=== PATIENT | female | born 1960 | race Caucasian/White ===

== ENCOUNTER 2021-04-20 17:24 | Emergency (ER) | payer BC ==
[2021-04-20 17:34] VITALS: RESP 18; TEMP 97.7
[2021-04-20] MEDS ORDERED: SODIUM CHLORIDE 0.9% 1,000 ML IV STA (17:37)
[2021-04-20] MEDS ORDERED: LORazepam 1 MG TAB PO STA (17:38)
[2021-04-20] MEDS ORDERED: LORazepam 2 MG/ML INJ IV STA (17:40)
[2021-04-20 17:49] LABS: Basophils # (A) 0.1 k/uL (0-0.2); Basophils % (A) 1 %; Eosinophils % (A) 1 %; HCT 41.1 % (34.0-46.0); HGB 13.8 gm/dL (11.4-16.0); Lymphocytes # (A) 1.4 k/uL (1.0-4.8); Lymphocytes % (A) 39 %; MCH 34.4 pg (25.0-35.0); MCHC 33.7 g/dL (31.0-37.0); MCV 102.2 fL (80.0-100.0); Macrocytosis Slight; Mean Platelet Volume 9.4; Monocytes # (A) 0.2 k/uL (0-1.0); Monocytes % (A) 6 %; Neutrophils # (A) 1.8 k/uL (1.3-7.7); Neutrophils % (A) 51 %; Platelet Count 141 k/uL (150-450); RBC 4.02 m/uL (3.80-5.40); RDW 15.5 % (11.5-15.5); WBC 3.6 k/uL (3.8-10.6)
--- NOTE | 2021-04-20 17:59 | ED ---
General Adult HPI - General Chief complaint: Alcohol Stated complaint: Weakness Time Seen by Provider: 04/20/21 17:26 Source: patient, EMS, RN notes reviewed, old records reviewed Mode of arrival: EMS Limitations: no limitations - History of Present Illness Initial comments: Patient is a 60-year-old female with past medical history remarkable for alcohol abuse who presents from substance rehab [facility] for low blood pressure. There were holding her Ativan and wanted her evaluated in the emergency department. Upon arrival, patient's blood pressure is within normal limits. She is relatively asymptomatic except for her current withdrawal symptoms. She started detox 3 days ago. She is endorsing tremors, as well as a generalized feeling of unwell. She denies chest pain, shortness breath, abdominal pain, nausea, vomiting. She states she has a little bit less of an appetite. Denies any urinary complaints. Denies any headaches and blurry vision. She states she feels like she needed some Ativan for her withdrawals at this time. She is requesting that. She otherwise is uncertain why she was sent here.Patient denies any history of hallucinations. She has gone through alcohol withdrawals previously denies any seizures. Is uncertain when her last dose of Ativan. His no other acute complaints at this time. - Related Data Allergies Allergy/AdvReac Type Severity Reaction Status Date / Time No Known Allergies Allergy Verified 04/20/21 17:34 Review of Systems ROS Statement: Those systems with pertinent positive or pertinent negative responses have been documented in the HPI. Review of Systems: CONST: Denies fever EYES: Denies blurry vision ENT: Denies nasal congestion C/V: Denies Chest pain RESP: Denies shortness of breath GI: Denies abdominal pain : Denies dysuria SKIN: Denies rash. MSK: Denies joint pain. NEURO: Denies headache ROS Other: All systems not noted in ROS Statement are negative. Past Medical History Additional Past Medical History / Comment(s): alcohol abuse History of Any Multi-Drug Resistant Organisms: None Reported Past Surgical History: Unable to Obtain Past Psychological History: No Psychological Hx Reported Smoking Status: Current every day smoker Past Alcohol Use History: Abuse, Daily Past Drug Use History: None Reported General Exam - General Exam Comments Initial Comments: General: Appears in no acute distress. Mild tremors. HEAD: Normal with no signs of head trauma. EYES: PERRLA, EOMI, conjunctiva normal, no discharge. ENT: Hearing grossly intact, normal oropharynx. RESPIRATORY: Clear breath sounds bilaterally. No wheezes, rales, or rhonchi. C/V: Regular rate and rhythm. S1 and S2 auscultated, no edema, peripheral pulses 2+ and intact throughout ABD: Abd is soft, nontender, nondistended EXT: Normal range of motion, no obvious deformity SKIN: No rashes or lesions observed on exposed skin. NEURO: Alert and oriented 4. Mild peripheral tremors. Limitations: no limitations Course Vital Signs 04/20/21 04/20/21 17:31 18:40 Temperature 97.7 F Pulse Rate 98 88 Respiratory 18 18 Rate Blood Pressure 118/75 99/65 O2 Sat by Pulse 100 100 Oximetry Medical Decision Making - Medical Decision Making Patient presents over concern for low blood pressure at the outpatient rehab facility. However here she is no acute complaints, and blood pressure is within normal limits. She is currently undergoing treatment for alcohol withdrawals and is concerned as they give her Ativan. They wanted her evaluated prior to return to the facility. She currently has no acute complaints other than withdrawal complaints. She has mild tremors, as well as mild anxiety for a total score of 3 for CIWA. Vital signs are within normal limits and stable. We'll obtain basic laboratory studies, provide the patient with a 1 L fluid b olus as well as a dose of Ativan for withdrawals. She was in agreement with this plan. Exam is otherwise unremarkable, vital signs are stable.She appears to be going through active alcohol withdrawals which is expected. Last drink was 3 days ago and she has been in the last 3 days at [facility]. Patient's laboratory studies are remarkable for mild acidosis of 18 which is likely secondary to mild alcoholic ketoacidosis. Patient does appear to be dehydrated as well with no urine infection. Reevaluation come patient's blood pressure remained stable and within normal limits. She is feeling improved. We will continue to fluid hydrate her. She will receive an IM dose of thiamine. With that she requires admission the hospital at this time and can return to her facility for further management of her alcohol detox. She was in agreement this plan.Patient is tolerating by mouth intake at this time. I instructed the patient to follow up with their PCP in the next 3 days. I explained that the patient should return to the emergency department if they experience any worsening symptoms. Strict return precautions were discussed with the patient. The patient expressed understanding of these instructions. I answered all questions that the patient had. The patient was discharged home in good condition with their prescriptions and follow up information. - Lab Data Result diagrams: 04/20/21 17:36 04/20/21 17:36 Lab Results 04/20/21 04/20/21 04/20/21 Range/Units 17:36 17:36 17:49 WBC 3.6 L (3.8-10.6) k/uL RBC 4.02 (3.80-5.40) m/uL Hgb 13.8 (11.4-16.0) gm/dL Hct 41.1 (34.0-46.0) % MCV 102.2 H (80.0-100.0) fL MCH 34.4 (25.0-35.0) pg MCHC 33.7 (31.0-37.0) g/dL RDW 15.5 (11.5-15.5) % Plt Count 141 L (150-450) k/uL MPV 9.4 Neutrophils % 51 % Lymphocytes % 39 % Monocytes % 6 % Eosinophils % 1 % Basophils % 1 % Neutrophils # 1.8 (1.3-7.7) k/uL Lymphocytes # 1.4 (1.0-4.8) k/uL Monocytes # 0.2 (0-1.0) k/uL Eosinophils # 0.0 (0-0.7) k/uL Basophils # 0.1 (0-0.2) k/uL Macrocytosis Slight Sodium 132 L (137-145) mmol/L Potassium 3.8 (3.5-5.1) mmol/L Chloride 98 (98-107) mmol/L Carbon Dioxide 18 L (22-30) mmol/L Anion Gap 16 mmol/L BUN 15 (7-17) mg/dL Creatinine 0.64 (0.52-1.04) mg/dL Est GFR (CKD-EPI)AfAm >90 (>60 ml/min/1.73 sqM) Est GFR (CKD-EPI)NonAf >90 (>60 ml/min/1.73 sqM) Glucose 83 (74-99) mg/dL Calcium 9.2 (8.4-10.2) mg/dL Magnesium 1.6 (1.6-2.3) mg/dL Total Bilirubin 1.1 (0.2-1.3) mg/dL AST 117 H (14-36) U/L ALT 122 H (4-34) U/L Alkaline Phosphatase 76 (38-126) U/L Total Protein 6.0 L (6.3-8.2) g/dL Albumin 4.1 (3.5-5.0) g/dL Urine Color Yellow Urine Appearance Cloudy H (Clear) Urine pH 6.5 (5.0-8.0) Ur Specific [place] 1.025 (1.001-1.035) Urine Protein 2+ H (Negative) Urine Glucose (UA) Negative (Negative) Urine Ketones 4+ H (Negative) Urine Blood Moderate H (Negative) Urine Nitrite Negative (Negative) Urine Bilirubin 1+ H (Negative) Urine Urobilinogen 6.0 (<2.0) mg/dL Ur Leukocyte Esterase Small H (Negative) Urine RBC 26 H (0-5) /hpf Urine WBC 8 H (0-5) /hpf Ur Squamous Epith Cells 14 H (0-4) /hpf Urine Bacteria Rare H (None) /hpf Hyaline Casts 25 H (0-2) /lpf Urine Mucus Many H (None) /hpf Disposition Clinical Impression: Alcohol withdrawal syndrome, Dehydration, Alcoholic ketoacidosis Disposition: HOME SELF-CARE Condition: Good Instructions (If sedation given, give patient instructions): Alcohol Withdrawal (ED) Additional Instructions: Continue treatment for alcohol withdrawal at [facility]. Stay hydrated during treatment. Continue to eat during treatment. Is patient prescribed a controlled substance at d/c from ED?: No Referrals: Navneet Persaud DO [Primary Care Provider] - 1-2 days
[2021-04-20 18:00] LABS: AST 117 U/L (14-36); African American GFR (CKD) >90 (>60 ml/min/1.73 sqM); Albumin 4.1 g/dL (3.5-5.0); Anion Gap 16 mmol/L; Blood Urea Nitrogen 15 mg/dL (7-17); Calcium 9.2 mg/dL (8.4-10.2); Carbon Dioxide 18 mmol/L (22-30); Chloride 98 mmol/L (98-107); Glucose 83 mg/dL (74-99); Magnesium 1.6 mg/dL (1.6-2.3); Non-African American GFR(CKD) >90 (>60 ml/min/1.73 sqM); Potassium 3.8 mmol/L (3.5-5.1); Sodium 132 mmol/L (137-145); Total Bilirubin 1.1 mg/dL (0.2-1.3)
[2021-04-20 18:01] LABS: ALT 122 U/L (4-34); Alkaline Phosphatase 76 U/L (38-126)
[2021-04-20 18:02] LABS: Appearance,Urine Cloudy (Clear); Bacteria,Urine Rare /hpf; Bilirubin,Urine 1+ (Negative); Blood,Urine Moderate (Negative); Color,Urine Yellow; Glucose,Urine (UA) Negative (Negative); Hyaline Casts,Urine 25 /lpf (0-2); Ketones,Urine 4+ (Negative); Leukocyte Esterase,Urine Small (Negative); Mucus,Urine Many /hpf; Nitrite,Urine Negative (Negative); PH, Urine 6.5 (5.0-8.0); Protein,Urine 2+ (Negative); RBC,Urine 26 /hpf (0-5); Specific Gravity,Urine 1.025 (1.001-1.035); Squamous Epithelial Cell,Urine 14 /hpf (0-4); WBC,Urine 8 /hpf (0-5)
[2021-04-20] MEDS ORDERED: SODIUM CHLORIDE 0.9% 500 ML 500 ML IV STA (18:18)
[2021-04-20] MEDS ORDERED: THIAMINE 100 MG/ML 2 ML VIAL IM STA (18:18)
[2021-04-20 18:41] VITALS: BP 99/65; PULSE 88
== END 2021-04-20 20:03 | disposition home or self-care (01) ==
LOC: EC 17:24
DX: F10.239 Alcohol dependence with withdrawal, unspecified (principal); E86.0 Dehydration; E87.2 Acidosis; Y90.9 Presence of alcohol in blood, level not specified; F17.200 Nicotine dependence, unspecified, uncomplicated
CPT/HCPCS: 36415; 80053; 83735; 85025; 81001; 99285; 96374; 96361 ×2; J2060; J3411